=== PATIENT | male | born 1960 | race Two or more races ===

== ENCOUNTER 2025-04-03 11:58 | Emergency (ER) | payer MEDICARE, MEDICAID, SELFPAY ==
[2025-04-03 12:22] VITALS: BP 178/116; BP 217/130; PULSE 80; RESP 20; TEMP 37.1; O2SAT 96; BMI 34.1
--- NOTE | 2025-04-03 12:29 | XR_ITS ---
Examination: CT brain head without contrast. 2-D sagittal coronal reconstructions Date and time of exam: April 03, 2025, 1316 hours INDICATIONS: Palpable lump behind the ear on the left side noticed beginning 2 days ago CTDI: vol (mGy): 57.9 DLP: (mGycm): 1245 Technique: Multiple CT axial sections of the brain have been obtained, 5 mm slice thickness. Contrast has not been administered. 2-D sagittal, coronal reconstructions have been obtained Low dose protocols were performed. One or more of the following dose reduction techniques were used; automated exposure control, adjustment of the mA and/or KV according to patient size, use of iterative reconstruction technique. Findings: No significant ventricular enlargement. Intra-axial or extra-axial hemorrhage density is not seen. No mass effect or midline shift Basal cisterns are not remarkable. Fourth ventricle is midline. Cranial vault intact. Impression: Negative for acute hemorrhage, mass effect or midline shift Chronic left mastoiditis Consider ultrasound soft tissue of any palpable mass behind the left ear
--- NOTE | 2025-04-03 12:29 | EKG_ITS ---
[facility] Test Date: 2025-04-03 Pat Name: ALEX GONZALEZ Department: Room: - Gender: Male Supervisory Examiner: : 1960 Requested By: Estiven Peñaloza Order Number: [id number] Reading MD: Estiven Peñaloza Measurements Intervals [place] Rate: 92 P: 22 IL: 166 QRS: 27 QRSD: 92 T: 24 QT: 338 QTc: 420 Interpretive Statements SINUS RHYTHM Compared to ECG 11/19/2021 21:34:19 No significant changes /store/S0/[id number].pdf
--- NOTE | 2025-04-03 12:30 | PD.EDRME ---
Rapid Medical Screening Exam E Arrival date/time: 04/03/25 11:58 64-year-old male with a history of hypertension presents to the emergency room with a chief complaint of a headache, a lump to the back of his head x 2 days I have greeted and performed a focused initial assessment of this patient. A comprehensive ED assessment and evaluation of the patient, analysis of all test results, and completion of the medical decision making process will be conducted by additional ED providers. Chief Complaint: Headache Time Seen by Provider: 04/03/25 12:10 Vital signs: Vital Signs Temperature 98.7 F 04/03/25 12:22 Pulse Rate 80 04/03/25 12:22 Respiratory Rate 20 04/03/25 12:22 Blood Pressure 217/130 H 04/03/25 12:22 Pulse Oximetry (%) 96 04/03/25 12:22 Oxygen Delivery Method Room Air 04/03/25 12:22 Vital signs reviewed by provider: Yes Exam: Strong and regular rhythm S1 and S2 noted Clear bilateral lung sounds no wheezing or any abnormal breath sounds Clinical Impression: Hypertensive urgency/hypertensive emergency
[2025-04-03 12:40] VITALS: BP 217/130; PULSE 80
[2025-04-03 12:46] LABS: Collection Type, Urine Clean Catch; Squamous Epithelial Cell,Urine 0 /hpf (0-5); WBC,Urine 0 /hpf (0-5)
[2025-04-03 12:51] LABS: Basophils # (Auto) 0.1 Thou/mm3 (0.0-0.2); Basophils % (Auto) 1 % (0-2.5); Eosinophils # (Auto) 0.1 Thou/mm3 (0.0-0.5); Eosinophils % (Auto) 2 % (0-10); Hematocrit 43.8 % (41.0-53.0); Hemoglobin 15.0 g/dL (13.5-16.0); Immature Granulocytes Auto 0.01 Thou/mm3 (0.00-0.00); Lymphocytes # (Auto) 1.7 Thou/mm3 (1.0-4.8); Lymphocytes % (Auto) 22 % (10-50); Mean Corpuscular HGB Conc 34.2 g/dl (31.0-37.0); Mean Corpuscular Hemoglobin 30.4 pg (25.0-35.0); Mean Corpuscular Volume 89 fL (80-100); Monocytes # (Auto) 0.6 Thou/mm3 (0.0-0.8); Monocytes % (Auto) 8 % (0-12); Neutrophils # (Auto) 5.2 Thou/mm3 (1.8-7.7); Neutrophils % (Auto) 68 % (37-80); Nucleated Red Blood Cell # 0.00 Thou/mm3 (0.00-0.00); Nucleated Red Blood Cell % 0 /100 WBC (0); Platelet Count 283 Thou/mm3 (140-440); RDW Standard Deviation 42.2 fL (35.1-43.9); Red Blood Count 4.94 Miln/mm3 (4.50-5.90); White Blood Count 7.7 Thou/mm3 (3.8-10.6)
[2025-04-03 13:13] LABS: Bilirubin,Urine Negative (Negative); Blood,Urine Negative (Negative); Clarity,Urine Clear (Clear/Hazy); Color,Urine Colorless (Lt Yel-Yel); Culture Indicated,Urine Not Indicated; Glucose, Urine Negative (Negative); Ketones,Urine Negative (Negative); Leukocyte Esterase,Urine Negative (Negative); Nitrite,Urine Negative (Negative); PH,Urine 6.5 (5.0-7.0); Protein,Urine Negative (Neg - Trace); RBC,Urine 1 /hpf (0-3); Specific Gravity,Urine 1.005 (1.001-1.035); Urobilinogen,Urine Negative mg/dL (0.0-1.0)
[2025-04-03 13:20] LABS: INR 1.0 (0.9-1.3); Partial Thromboplastin Time 28.9 Seconds (22.0-36.0); Prothrombin Time 10.2 Seconds (9.0-12.2)
[2025-04-03 13:22] LABS: B-Type Natriuretic Peptide < 20 pg/mL (0-100)
[2025-04-03 13:23] LABS: Alanine Aminotransferase 18 U/L (10-49); Albumin, Serum 4.9 gm/dL (3.4-4.8); Albumin/Globulin Ratio 2.2 (1.2-2.2); Alkaline Phosphatase 88 U/L (46-116); Anion Gap 10 (7-16); Aspartate Amino Transferase 23 U/L (0-34); BUN/Creatinine Ratio 10 Ratio (12-20); Bilirubin,Total 0.6 mg/dL (0.3-1.2); Blood Urea Nitrogen 10 mg/dL (9-23); Calcium 9.4 mg/dL (8.3-10.6); Calcium (Corrected) 9.4 mg/dL (8.5-10.1); Carbon Dioxide 27.5 mMol/L (20.0-31.0); Chloride 104 mMol/L (98-107); Creatinine (Component) 1.0 mg/dL (0.6-1.3); Estimated Creatinine Clearance 96.0 mL/min (>60); Globulin 2.2 gm/dL (2.3-3.5); Glucose 100 mg/dL (74-106); Magnesium 1.9 mg/dL (1.6-2.6); Osmolality,Calculated 280 (275-295); Potassium 4.2 mMol/L (3.4-5.1); Sodium 141 mMol/L (136-145); Total Protein 7.1 gm/dL (5.7-8.2); Troponin I < 0.020 ng/mL (0.0-0.045); eGFR > 60 See Note
[2025-04-03 13:32] VITALS: BP 180/115; BP 210/122; PULSE 82; RESP 14; TEMP 36.8; O2SAT 98
--- NOTE | 2025-04-03 14:30 | PRELIM_ITS ---
CT scan of the head without intravenous contrast (axial sections with sagittal and coronal reformats) April 03, 2025 1316 hours Clinical History: lump to back of head, headache Comparison: No prior study is available for comparison. Findings: There is no evidence of intracranial hemorrhage, mass effect or midline shift. There are periventricular white matter hypodensities, compatible with chronic small vessel ischemia. There is mild volume loss. There is atheromatous calcification of the intracranial arteries.The calvarium is intact. The mastoid air cells and the visualized paranasal sinuses are clear. Impression: No evidence of intracranial hemorrhage, midline shift or calvarial fracture. Periventricular chronic small vessel ischemia and volume loss. Report Electronically Signed By: Scar Palma 04/03/2025 2:29:53 PM [EST]
[2025-04-03 15:29] VITALS: BP 176/104; PULSE 76; RESP 18; O2SAT 99
[2025-04-03 16:03] VITALS: BP 176/104; PULSE 76
--- NOTE | 2025-04-03 16:25 | EDNOTE_ITS ---
<Statement entered by Santa Méndez MD - 04/03/25 16:58> I, Santa Méndez MD, have reviewed the history, exam, and assessment of the patient. I have evaluated the patient independently and agree with the plan of care documented by [ ]. All diagnostic studies were reviewed and discussed. I confirm the diagnosis as documented by the Resident. I was present during the Medical Decision Making for this patient. The patient's plan of care was created between myself and the Resident and consistent with our discussion of the patient's case. ED Headache RME/HPI General Chief Complaint: Headache Stated Complaint: LUMP TO BACK OF HEAD Time Seen by Provider: 04/03/25 12:10 Arrival date/time: 04/03/25 11:58 RME / HPI RME / HPI Narrative: 04/03/25 11:58 CC: bump at left occipital region Patient is a 64 year old male with a past medical history of hypertension, only take Lisinopril, as home medication who presented with a chief complain of small mass like lesion at the left occipatal region. Areas circular about 2 cm in diameter that appears indurated but not draining. Pain is sharp but not electrical. Denied trauma or poking site with any type of object. Patient denied shingles shot and unsure if he has a history of Varicella as a child. Denied puritis. Non compliant with home medication for hypertenion. Noted to have hypertensive urgency. Clonidine 0.1 PO X 1 given and hydralazine 25 PO given X 1 --->decrease by 15% systolic BP of 179. Impression: Hypertensive urgency/hypertensive emergency Related Data Previous Rx's ?Medication ?Instructions ?Recorded lisinopril 10 mg tablet 10 mg PO QDAY #14 tabs 11/20 mupirocin 2 % topical ointment 1 applic topical BID #1 5 grams 04/03/25 (Centany) Allergies Allergy/AdvReac Type Severity Reaction Status Date / Time No Known Allergies Allergy Verified 04/03/25 12:02 Review of Systems Review of Systems Narrative Review of Systems: General appearance: NO weight change, NO fatigue, NO weakness, NO fever, NO chills, NO night sweats, No cough, PAIN at left occipital region Skin: NO rash, NO itching, NO sores, NO moles HEENT: NO Trauma, NO nausea, NO vomiting, NO visual changes, NO blurry vision, NO double vision, NO tinnitus, NO vertigo, NO ear discharge, NO rhinorrhea, NO stuffiness, NO sneezing, NO allergy, NO epistaxis. NO Hoarseness, NO sore throat, NO swollen neck. Cardiac: NO Palpitations, NO dyspnea on exertion, NO orthopnea, NO paroxysmal nocturnal dyspnea, NO edema Respiratory: NO Shortness of Breath, NO Wheezing, NO Cough, NO Sputum, NO hemoptysis GI:NO appetite, NO nausea, NO vomiting, NO dysphagia, NO changes in bowel frequency, NO stool color, NO diarrhea, NO constipation, NO hemetemesis, NO hemorrhoids, NO melena, NO hematechezia, NO abdominal pain, NO jaundice Renal: NO frequency, NO hesitancy, NO urgency, NO hematuria, NO nocturia, NO incontinence MSK: NO muscle weakness, NO gout, NO arthritis, NO muscle stiffness Neuro: NO headaches, NO tremors, NO weakness, NO paralysis, NO seizures, NO loss of consciousness, NO numbness. Hem: NO anemia, NO easy bruising/bleeding, NO petechiae, NO purpura Endo: NO heat/cold intolerance, NO excessive sweating, NO polyuria, NO polydipsia, NO polyphagia, NO thyroid problems, NO diabetes Pysch: NO mood, NO anxiety, NO depression Course Quality Measures none Orders Category Date Time Status EKG (ED ONLY) *Do not use* NOW Care 04/03/25 12:[address] head/brain wo con Stat Exams 04/03/25 12:29 Taken EKG (ED Only) Stat Exams 04/03/25 12:29 Draft B-Type Natriuretic Peptide Stat Lab 04/03/25 12:40 Completed CBC Stat Lab 04/03/25 12:40 Completed Comprehensive Metabolic Panel Stat Lab 04/03/25 12:40 Completed Magnesium Stat Lab 04/03/25 12:40 Completed Partial Thromboplastin Time Stat Lab 04/03/25 12:40 Completed Prothrombin Time with INR Stat Lab 04/03/25 12:40 Completed Troponin I Stat Lab 04/03/25 12:40 Completed Urinalysis, C/S if Indicated Stat Lab 04/03/25 12:30 Completed HYDROcodone*/APAP 5/325 [Golden 5/325] Med 04/03/25 16:33 Discontinued 1 tab PO X1 ONE cloNIDine HCL [Catapres] Med 04/03/25 12:30 Discontinued 0.1 mg PO X1 ONE cloNIDine HCL [Catapres] Med 04/03/25 15:28 Discontinued 0.2 mg PO X1 ONE hydrALAZINE HCL [Apresoline] Med 04/03/25 15:28 Discontinued 25 mg PO X1 ONE Vital Signs Vital signs: Vital Signs Temperature 98.7 F 04/03/25 12:22 Pulse Rate 80 04/03/25 12:22 Respiratory Rate 20 04/03/25 12:22 Blood Pressure 217/130 H 04/03/25 12:22 Pulse Oximetry (%) 96 04/03/25 12:22 Oxygen Delivery Method Room Air 04/03/25 12:22 Headache Patient data External records reviewed:: [facility] previous records Clinical information provided by:: patient Social determinants that could affect healthcare access:: none Patient has the following chronic illnesses:: Hypertension How is presenting disease/condition affected by chronic disease/condition?: uneffected by Evaluation data The following diagnostics were reviewed and interpreted by me:: lab results Lab and/or radiology exams considered but not ordered:: Vitals , CBC, and CMP Interpretation Summary: Hypertensive Urgency, non-compliant with medication Medications / Prescriptions Medications or Prescriptions considered but not ordered:: Clondinine and hydralazine Medication administrations:: Medication Administration History Discontinued Medications Hydrocodone Bitart/Acetaminophen (Hydrocodone/Apap 5/325 Tablet) 1 tab PO X1 ONE Stop: 04/03/25 16:34 Last Admin: 04/03/25 16:36 Dose: 1 tab Documented By: Clonidine (Clonidine Hcl 0.1 Mg Tablet) 0.1 mg PO X1 ONE Stop: 04/03/25 12:31 Last Admin: 04/03/25 12:40 Dose: 0.1 mg Documented By: Clonidine (Clonidine Hcl 0.1 Mg Tablet) 0.2 mg PO X1 ONE Stop: 04/03/25 15:29 Last Admin: 04/03/25 16:04 Dose: Not Given Documented By: Non-Admin Reason: Cancelled by Provider Hydralazine HCl (Hydralazine Hcl 25 Mg Tablet) 25 mg PO X1 ONE Stop: 04/03/25 15:29 Last Admin: 04/03/25 16:03 Dose: 25 mg Documented By: same as above Consultations Consultation(s) initiated? (list below): No Diagnosis Differential diagnosis headache: tension headache, headache and other (soft tissue infection ) Most likely diagnosis given after review of the tests above:: Soft tissue infection, follow up with primary care physician for possible ingrown hair or shingles. Admission Indicated Admission indicated?: not indicated Admission Request Was there a request for admission?: No Disposition Plan Disposition Plan: Discharge Discharge Attestation Discharge Attestation: The patient and all family members were given an opportunity to ask questions and understood the discharge instructions. Discharge instructions specifically effects, indications for sooner follow up or return to the emergency department, and the expected course of current diagnosis. Patient condition: Stable Discharge Plan Plan Patient Disposition: HOME (Self Care) Patient condition on transfer: Stable Health Concerns: Instructions: -Please apply mupirocin ointment for your skin infection on your head up to twice daily. -Apply warm compresses at site of infection -Please continue all other medication as prescribed, including your lisinopril -Please follow up with your primary care provider within one week of discharge -If your symptoms worsen,please seek immediate medical attention and return to your nearest emergency room -If you do not have a primary care provider, [facility], [place] [address], Prescriptions/Referrals Prescriptions/Med Rec: New mupirocin [Centany] 2 % ointment 1 applic topical BID Qty: 15 0RF Continued lisinopril 10 mg tablet 10 mg PO QDAY Qty: 14 0RF Referrals: Chris Zamora MD [Primary Care Provider, Family Practice] - In 1 week Problem List Clinical Impression: Headache, Bacterial skin infection Patient/Caregiver Discharge Instructions Print Language: Japanese Stand Alone Forms: [employer] Award Info., Patient Portal Info Letter
[2025-04-03] MEDS: HYDROcodone/APAP 5/325 TABLET 1 TAB PO (16:36)
--- NOTE | 2025-04-03 16:49 | PD.EDRME ---
Rapid Medical Screening Exam RME Arrival date/time: 04/03/25 11:58 04/03/25 11:58 CC: bump at left occipital region Patient is a 64 year old male with a past medical history of hypertension, only take Lisinopril, a Chief Complaint: Headache Time Seen by Provider: 04/03/25 12:10 Vital signs: Vital Signs Temperature 98.7 F 04/03/25 12:22 Pulse Rate 80 04/03/25 12:22 Respiratory Rate 20 04/03/25 12:22 Blood Pressure 217/130 H 04/03/25 12:22 Pulse Oximetry (%) 96 04/03/25 12:22 Oxygen Delivery Method Room Air 04/03/25 12:22 RME Narrative: 04/03/25 11:58 CC: bump at left occipital region Patient is a 64 year old male with a past medical history of hypertension, only take Lisinopril, a Exam: Strong and regular rhythm S1 and S2 noted Clear bilateral lung sounds no wheezing or any abnormal breath sounds Clinical Impression: Hypertensive urgency/hypertensive emergency
== END 2025-04-03 17:00 | disposition home or self-care (01) ==
PROVIDERS: Nurse Practitioner Family; Emergency Provider Emergency Medicine; PCP Family Medicine
DX: R51.9 Headache, unspecified (principal); I10 Essential (primary) hypertension; I16.1 Hypertensive emergency; L08.9 Local infection of the skin and subcutaneous tissue, unspecified; Z91.148 Patient's other noncompliance with medication regimen for other reason
CPT/HCPCS: 36415; 70450; 80053; 81001; 83735; 83880; 84484; 85025; 85610; 85730; 93005; 99283; A9270